=== PATIENT | male | born 1970 | race Caucasian/White ===

== ENCOUNTER 2020-10-30 13:45 | Emergency (ER) | payer OTHER, SELFPAY ==
--- OUTSIDE RECORDS SUMMARY | 2020-10-30 13:48 | XMS REPORT | Continuity of Care Document ---
:[address] [facility] t Address [facility] Sarkar [address] [place] [id number] Care Team Providers Name Role Phone Unavailable Unavailable Unavailable Problems This patient has no known problems. Allergies, Adverse Reactions, Alerts This patient has no known allergies or adverse reactions. Medications This patient has no known medications. Procedures This patient has no known procedures. Results Test Description Test Time Test Comments Results Result [facility] e Comments US ABDOMEN 2018-06-14 [facility] 12:58:[address] [address]HUGLJUEHOM IMAGING REPORTPatient Name: MURIEL HERRERAate of Service: [id number]: 48 Sex: M Order #: [id number] Room: OPEDOB: 1970 X-Ray Number: [id number] Record Number: [id number] Hospital Number: [id number] Physician: Vasiliy ANDREW Physician: KIET ANDREWAbdominal ultrasound 06/14/2018History: Elevated liver enzymesComparison: NoneThe liver shows increased echotexture consistent with fatty infiltration.No focal mass or biliary dilatation.Duplex imaging of main portal vein flow, gallbladder, pancreas, aorta, IVC,spleen and kidneys are within normal limits where seen. The pancreatic tailis obscured by bowel gas.Common bile duct measures 6 mm in diameter. Right kidney measures 10.9 cmin length and the left 11.7 cm. There is no free fluid or adenopathy.Impression:F atty liver.Electronically Signed By: Amandeep Salvador M.D., 06/14/2018 12:56 PMLegally authenticated by BRANDO PICKETT 2018-06-14 12:56:26
[2020-10-30] MEDS ORDERED: TETANUS & DIPHTHERIA TOX,ADULT 0.5 ML VIAL ONE (14:14)
--- NOTE | 2020-10-30 15:52 | RAD REPORT ---
EXAM DESCRIPTION: RAD - Hand Right 3 View - 10/30/2020 2:37 pm CLINICAL HISTORY: PAIN COMPARISON: <Comparisons> FINDINGS: Soft tissue swelling is seen about the hands. No acute fracture or dislocation. No radiopa que foreign body.
[2020-10-30] MEDS ORDERED: IBUPROFEN 400 MG TAB ONE ×2 (15:57→16:08)
--- NOTE | 2020-10-30 15:57 | EDPHYS ---
Physician Documentation [facility] Name: Brayan Bustillos Age: 50 yrs Sex: Male : 1970 Arrival Date: 10/30/2020 Time: 13:46 Bed 7 Private MD: ED Physician Rod Quintero HPI: 10/30 15:32 This 50 yrs old Male presents to ER via EMS with complaints of hand pain. kb 15:32 The patient or guardian reports injury, pain, swelling, tenderness. The complaints kb affect the right hand diffusely. Context: The problem was sustained at work, resulted from a crush injury. The patient has not experienced similar symptoms in the past. The patient has not recently seen a physician. 15:34 Onset: The symptoms/episode began/occurred just prior to arrival. Modifying factors: kb The symptoms are alleviated by nothing, the symptoms are aggravated by movement. Associated signs and symptoms: The patient has no apparent associated signs or symptoms. Severity of symptoms: At their worst the symptoms were moderate, in the emergency department the symptoms are unchanged. 15:35 heavy pipe fell on pt's hand while working. kb Historical: - Allergies: 13:52 No Known Allergies; tw2 - Home Meds: 13:52 Lisinopril Oral [Active]; Simvastatin Oral [Active]; tw2 - PMHx: 13:52 Hypertension; Hyperlipidemia; tw2 - Immunization history:: Last tetanus immunization: unknown. - Social history:: Smoking status: . ROS: 15:24 Constitutional: Negative for fever, chills, and weight loss, Neuro: Negative for kb headache, weakness, numbness, tingling, and seizure. 15:24 MS/extremity: Positive for injury or acute deformity, abrasion, pain, swelling, tenderness, of the right hand. 15:24 Skin: Positive for abrasion(s), of the right thumb, right index finger, right middle finger and right ring finger. Exam: 15:27 Constitutional: This is a well developed, well nourished patient who is awake, alert, kb and in no acute distress. Head/Face: Normocephalic, atraumatic. Neuro: Awake and alert, GCS 15, oriented to person, place, time, and situation. Moves all extremities. Normal gait. 15:27 Musculoskeletal/extremity: Extremities: grossly normal except: noted in the right hand: abrasion, pain, swelling, ROM: intact in all extremities, limited active range of motion due to pain, Circulation is intact in all extremities. Sensation intact. 15:27 Skin: injury, abrasion(s), very small abrasion noted, small abrasion noted, of the right ring finger and right middle finger and right index finger and right thumb. Vital Signs: 13:46 BP 143 / 89; Pulse 68; Resp 17; Temp 98.9(O); Pulse Ox 96% on R/A; Weight 102.06 kg; tw2 Height 6 ft. 0 in. (182.88 cm); Pain 4/10; 14:48 BP 116 / 74; Pulse 65; Resp 17; Pulse Ox 98% on R/A; tw2 15:53 BP 125 / 76; Pulse 68; Resp 17; Pulse Ox 99% on R/A; tw2 13:46 Body Mass Index 30.52 (102.06 kg, 182.88 cm) tw2 MDM: 13:50 Patient medically screened. kb 15:23 Data reviewed: vital signs, nurses notes. Data interpreted: Pulse oximetry: on room air kb is 98 %. Interpretation: normal. 15:30 Counseling: I had a detailed discussion with the patient and/or guardian regarding: the kb historical points, exam findings, and any diagnostic results supporting the discharge/admit diagnosis, radiology results, the need for outpatient follow up, a orthopedic surgeon, to return to the emergency department if symptoms worsen or persist or if there are any questions or concerns that arise at home. 15:31 ED course: Awaiting x-ray report from radiologist. Called and requested x-ray be read . 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 Exp: 01/20/2022. Lot #: [id number]. } Route: IM; Site: left deltoid; 14:49 Follow up: Response: No adverse reaction 15:49 Drug: Ibuprofen 800 mg Route: PO; tw2 16:22 Follow up: Response: No adverse reaction tw2 Disposition: 10/31 08:12 Co-signature as Attending Physician, Rod Quintero MD I agree with the assessment and kdr plan of care. Disposition: 10/30/20 15:56 Discharged to Home. Impression: Contusion of right hand. - Condition is Stable. - Discharge Instructions: Hand Contusion, [id number], Crush Injury of the Hand, [id number]. - Medication Reconciliation Form, Thank You Letter, Antibiotic Education, Prescription Opioid Use, Work release form form. - Follow up: Emergency Department; When: As needed; Reason: Worsening of condition. Follow up: Private Physician; When: 2 - 3 days; Reason: Recheck today's complaints, Continuance of care, Re-evaluation by your physician. Signatures: Dispatcher [employer] EDMS Pattie Smith, CUSTOMER TRAINER-C CUSTOMER TRAINER-Rod Pang MD MD kdr Allyson Smith RN RN tw2 Corrections: (The following items were deleted from the chart) 10/30 16:09 15:56 10/30/2020 15:56 Discharged to Home. Impression: Contusion of right hand. tw2 Condition is Stable. Forms are Work release form, Medication Reconciliation Form, Thank You Letter, Antibiotic Education, Prescription Opioid Use. Follow up: Emergency Department; When: As needed; Reason: Worsening of condition. Follow up: Private Physician; When: 2 - 3 days; Reason: Recheck today's complaints, Continuance of care, Re-evaluation by your physician. kb
--- NOTE | 2020-10-30 15:57 | ER ---
Nurse's Notes [facility] Name: Brayan Bustillos Age: 50 yrs Sex: Male : 1970 Arrival Date: 10/30/2020 Time: 13:46 Bed 7 Private MD: Diagnosis: Contusion of right hand Presentation: 10/30 13:46 Chief complaint: EMS states: pt was welding a very large pipe at [place], it fell on his tw2 RIGHT hand, he has a large hemo to the RIGHT hand with some lacerations noted to the first 3 digits we flushed the wounds out and wrapped it, we gave 100 mcg Fentanyl in LEFT arm at 1315, initially pain 7/10 after fentanyl 4/10 reported, KNDA, hx: htn, hyperlipidemia. NO LOC. Coronavirus screen: At this time, the client does not indicate any symptoms associated with coronavirus-19. Ebola Screen: Patient denies travel to an Ebola-affected area in the 21 days before illness onset. Initial Sepsis Screen: Does the patient meet any 2 criteria? No. Patient's initial sepsis screen is negative. Does the patient have a suspected source of infection? No. Patient's initial sepsis screen is negative. Risk Assessment: Do you want to hurt yourself or someone else? Patient reports no desire to harm self or others. Note provider Alison Smith NP at bedside at this time. Onset of symptoms was October 30, 2020. Care prior to arrival: Splint applied. 13:46 Method Of Arrival: EMS: [facility] tw2 13:46 Acuity: SHAHRAM 2 tw2 Triage Assessment: 13:52 General: Appears in no apparent distress. Behavior is calm, cooperative, appropriate tw2 for age. Pain: Complains of pain in right arm. Neuro: Level of Consciousness is awake, alert, obeys commands, Oriented to person, place, time, situation. Cardiovascular: Patient's skin is warm and dry. Respiratory: Airway is patent Respiratory effort is even, unlabored, Respiratory pattern is regular, symmetrical. GI: No signs and/or symptoms were reported involving the gastrointestinal system. : No signs and/or symptoms were reported regarding the genitourinary system. Musculoskeletal: Circulation, motion, and sensation intact. Range of motion: limited in right wrist and right arm. Injury Description: Crush injury sustained to right arm. Historical: - Allergies: 13:52 No Known Allergies; tw2 - Home Meds: 13:52 Lisinopril Oral [Active]; Simvastatin Oral [Active]; tw2 - PMHx: 13:52 Hypertension; Hyperlipidemia; tw2 - Immunization history:: Last tetanus immunization: unknown. - Social history:: Smoking status: . Screenin:53 Abuse screen: Denies threats or abuse. Nutritional screening: No deficits noted. tw2 Tuberculosis screening: No symptoms or risk factors identified. Fall Risk None identified. Assessment: 13:53 Reassessment: see triage assessment. tw2 14:18 Reassessment: xray at bedside at this time. tw2 14:48 Reassessment: Patient appears in no apparent distress at this time. No changes from tw2 previously documented assessment. Patient and/or family updated on plan of care and expected duration. Pain level reassessed. Patient is alert, oriented x 3, equal unlabored respirations, skin warm/dry/pink. 15:53 Reassessment: Patient appears in no apparent distress at this time. No changes from tw2 previously documented assessment. Patient and/or family updated on plan of care and expected duration. Pain level reassessed. Patient is alert, oriented x 3, equal unlabored respirations, skin warm/dry/pink. Vital Signs: 13:46 BP 143 / 89; Pulse 68; Resp 17; Temp 98.9(O); Pulse Ox 96% on R/A; Weight 102.06 kg; tw2 Height 6 ft. 0 in. (182.88 cm); Pain 4/10; 14:48 BP 116 / 74; Pulse 65; Resp 17; Pulse Ox 98% on R/A; tw2 15:53 BP 125 / 76; Pulse 68; Resp 17; Pulse Ox 99% on R/A; tw2 13:46 Body Mass Index 30.52 (102.06 kg, 182.88 cm) tw2 ED Course: 13:46 Patient arrived in ED. jl7 13:46 Allyson Smith, MARILYN is Primary Nurse. tw2 13:46 Bed in low position. Call light in reach. Pulse ox on. NIBP on. tw2 13:50 Pattie Smith FNP-C [facility]. kb 13:50 Rod Quintero MD is Attending Physician. kb 13:50 Triage completed. tw2 13:52 Arm band placed on. tw2 14:19 Maintain EMS IV. Dressing intact. Good blood return noted. Site clean \T\ dry. Gauge \T\ tw 2 site: 20 g LEFT ac. 14:37 Hand Right 3 View XRAY In Process Unspecified. EDMS 16:08 No provider procedures requiring assistance completed. IV discontinued, intact, tw2 bleeding controlled, No redness/swelling at site. Pressure dressing applied. 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 Exp: tw2 01/20/2022. Lot #: [id number]. } Route: IM; Site: left deltoid; 14:49 Follow up: Response: No adverse reaction tw2 15:49 Drug: Ibuprofen 800 mg Route: PO; tw2 16:22 Follow up: Response: No adverse reaction tw2 Outcome: 15:56 Discharge ordered by . kb 16:08 Discharged to home ambulatory. tw2 16:08 Condition: stable 16:08 Discharge instructions given to patient, Instructed on discharge instructions, follow up and referral plans. Demonstrated understanding of instructions, follow-up care, wound care. 16:09 Patient left the ED. tw2 Signatures: Dispatcher [employer] EDMS Pattie Smith, KEYLA DANGP-Allyson Breen RN RN tw2 Christiano Ro RN RN [id number]
[2020-10-30 16:13] VITALS: TEMP 98.9
[2020-10-30 16:15] VITALS: BP 125/76; O2SAT 99
== END 2020-10-30 16:09 | disposition home or self-care (01) ==
LOC: ER 13:45
DX: S60.221A Contusion of right hand, initial encounter (principal); W22.8XXA Striking against or struck by other objects, initial encounter; Y93.89 Activity, other specified; Y92.89 Other specified places as the place of occurrence of the external cause; Y99.8 Other external cause status; Z23 Encounter for immunization; I10 Essential (primary) hypertension; E78.5 Hyperlipidemia, unspecified
CPT/HCPCS: 90471; 90714; 99284